=== PATIENT | female | born 1985 | race Two or more races ===

== ENCOUNTER 2017-10-15 14:12 | Emergency (ER) | payer MEDICAID ==
[~2017-10-15] VITALS: Ht 165.1 cm; Wt 55.3 kg
[2017-10-15 14:57] VITALS: BP 120/79
[2017-10-15] MEDS ORDERED: KETOROLAC TROMETH 60MG/2ML VIAL IM ONE (15:45)
== END 2017-10-15 16:19 | disposition home or self-care (01) ==
LOC: ER 14:12
DX: G89.29 Other chronic pain (principal); M54.2 Cervicalgia; M54.12 Radiculopathy, cervical region
CPT/HCPCS: 72040; 96372; 99284; J1885